=== PATIENT | female | born 1980 | race American Indian/Alaskan Native ===

== ENCOUNTER 2017-02-04 23:49 | Emergency (ER) | payer MEDICAID ==
[2017-02-05 00:29] VITALS: BP 98/66
[2017-02-05] MEDS ORDERED: KEFLEX ONE (02:44)
[2017-02-05] MEDS ORDERED: KEFLEX PO ONE (02:44)
--- NOTE | 2017-02-05 02:51 | Emergency Department Report ---
HPI - General Chief Complaint: Wound/Laceration Time Seen by Provider: 02/05/17 02:29 - HPI HPI: Patient is a 36-year-old female presents to ED complaining of laceration to left posterior lower leg that happened and 5 PM Sunday. Patient states she was jumping over a Pile of tiles and 1 on the towel was sticking out grazed her leg. Patient states yesterday she put aloe vera on it and wrapped it up. Patient states she went to coming today to have it looked at. She reports her tetanus vaccination is up-to-date She denies fevers/chills/nausea/vomiting/abdominal pain or any other problems. ED Past Medical Hx - Past Medical History Previous Medical History?: No - Surgical History Past Surgical History?: Yes Additional Surgical History: hyster - Social History Smoking Status: Never Smoker Substance Use Type: Alcohol - Medications Home Medications: Home Medications Medication Instructions Recorded Confirmed Last Taken Type Cephalexin [Keflex] 500 mg PO BID #12 capsule 02/05/17 Unknown Rx ED Review of Systems ROS: Stated complaint: LT LEG LAC Other details as noted in HPI Constitutional: denies: chills, fever Eyes: denies: eye pain, eye discharge, vision change ENT: denies: ear pain, throat pain Respiratory: denies: cough, shortness of breath, wheezing Cardiovascular: denies: chest pain, palpitations Endocrine: no symptoms reported Gastrointestinal: denies: abdominal pain, nausea, diarrhea Genitourinary: denies: urgency, dysuria, discharge Musculoskeletal: denies: back pain, joint swelling, arthralgia Skin: denies: rash, lesions Neurological: denies: headache, weakness, paresthesias Psychiatric: denies: anxiety, depression Hematological/Lymphatic: denies: easy bleeding, easy bruising Physical Exam - Physical Exam Vital Signs: Vital Signs 02/05/17 02/05/17 00:28 00:46 Temperature 99.1 F 99.1 F Pulse Rate 66 66 Respiratory 18 18 Rate Blood Pressure 98/66 Blood Pressure 98/66 [Right] O2 Sat by Pulse 100 100 Oximetry Physical Exam: GENERAL: Alert and oriented x3, no apparent distress, Normal Gait, atraumatic. HEAD: Head is normocephalic and a-traumatic. NECK: Supple. Non edematous, No carotid bruits. No lymphadenopathy or thyromegaly. No C-spine tenderness LUNGS: Symetrical with respiration, No wheezing, no rales or crackles, CTAB. HEART: S1, S2 present, regular rate and rhythm without murmur, no rubs, no gallops. SKIN: Warm and dry, 5 cm linear abrasion moderately healed on need posterior lower leg. No bleeding. No lesions, No ulceration or induration present. ED Course Vital Signs 02/05/17 02/05/17 00:28 00:46 Temperature 99.1 F 99.1 F Pulse Rate 66 66 Respiratory 18 18 Rate Blood Pressure 98/66 Blood Pressure 98/66 [Right] O2 Sat by Pulse 100 100 Oximetry ED Medical Decision Making - Medical Decision Making 36-year-old female presents with leg abrasion without infection. ED course: Patient received 1 dose of 500 mg of Keflex. Wound cleaned with Betadine, dressed with Steri-Strip. Discussed the patient's that Steri-Strips to fall off and after that use topical Neosporin. Discussed to take antibiotics as prescribed. Discussed the follow up with primary care physician in 3-5 days. Vital signs are normal. Patient is in no acute respiratory distress. Critical care attestation.: If time is entered above; I have spent that time in minutes in the direct care of this critically ill patient, excluding procedure time. ED Disposition Clinical Impression: Abrasion, leg w/o infection Disposition: - TO HOME OR SELFCARE Is pt being admited?: No Does the pt Need Aspirin: No Condition: Stable Instructions: Laceration (ED), Acute Wound Care (ED), Abrasion (ED) Prescriptions: Cephalexin [Keflex] 500 mg PO BID #12 capsule Referrals: [facility] [Outside] - 3-5 Days [facility] [Outside] - 3-5 Days [facility] [Outside] - 3-5 Days Forms: Accompanied Note, Work/School Release Form(ED) Time of Disposition: 03:19
== END 2017-02-05 03:25 | disposition home or self-care (01) ==
LOC: ED 23:49
DX: S80.812A Abrasion, left lower leg, initial encounter (principal); W17.89XA Other fall from one level to another, initial encounter; Y93.89 Activity, other specified; Y99.9 Unspecified external cause status; Y92.89 Other specified places as the place of occurrence of the external cause